=== PATIENT | male | born 1960 | race Caucasian/White ===

== ENCOUNTER 2020-11-16 18:21 | Inpatient (IN) | payer MEDICAID, OTHER ==
[~2020-11-16] VITALS: Ht 170.2 cm; Wt 136.1 kg
[2020-11-16] MEDS ORDERED: ASPIRIN 325MG TABLET PO ONE (22:00)
[2020-11-16] MEDS ORDERED: FUROSEMIDE 40MG/4ML VIAL IVP ONE (22:00)
[2020-11-16 23:00] LABS: BASOPHILS % 1.7 % (0.0-2.0); EOSINOPHILS % 1.2 % (0.0-5.0); HEMATOCRIT. 36.8 % (42.0-52.0); HEMOGLOBIN. 12.2 g/dL (14.0-18.0); LYMPHOCYTES % 49.2 % (20.0-50.0); MEAN CORPUSCULAR HEMOGLOBIN 28.2 pg (28.0-32.0); MEAN CORPUSCULAR VOLUME 85.1 fL (80.0-94.0); MEAN PLATELET VOLUME 7.5 fl (7.4-10.4); MONOCYTES % 7.3 % (2.0-8.0); NEUTROPHILS % 40.6 % (40.0-76.0); PLATELET 71 x1000/uL (130-400); RED BLOOD CELL COUNT 4.33 mill/uL (4.7-6.1); RED CELL DISTRIBUTION WIDTH 16.3 % (11.6-14.6)
[2020-11-16 23:07] LABS: CHLORIDE 108 mEq/L (98-107)
[2020-11-16 23:09] LABS: INR 1.1
[2020-11-17] MEDS ORDERED: ONDANSETRON HCL 4MG/2ML INJ IV PRN (08:15)
[2020-11-17] MEDS: FUROSEMIDE 40MG/4ML VIAL IVP SCH ×2 (09:10→17:27)
[2020-11-17 11:13] VITALS: BP 158/76
[2020-11-17 12:00] VITALS: BP 188/89
[2020-11-17] MEDS: ACETAMINOPHEN 325MG TABLET PO PRN ×2 (12:44→20:53)
[2020-11-17] MEDS: CLONIDINE 0.1MG TABLET PO PRN (14:36)
[2020-11-17 16:00] VITALS: BP 156/84
[2020-11-17] MEDS ORDERED: APIX2.5T PO (16:01)
[2020-11-17] MEDS ORDERED: AMIO100T4 MT (16:01)
[2020-11-17] MEDS ORDERED: ACET250T26 PO (16:01)
[2020-11-17] MEDS ORDERED: FURO80TA87 PO (16:01)
[2020-11-17] MEDS: POTASSIUM CHLORIDE 20MEQ TABLET SR PO SCH (17:28)
[2020-11-17 19:05] LABS: *COCAINE SCREEN URINE NEGATIVE (NEGATIVE); CANNABINOID URINE SCREEN PRESUMTIVE POSITIVE (NEGATIVE); METHADONE URINE SCREEN NEGATIVE (NEGATIVE); OPIATES URINE SCREEN NEGATIVE (NEGATIVE); PHENCYCLIDINE URINE SCREEN NEGATIVE (NEGATIVE)
[2020-11-17 19:06] LABS: *AMPHETAMINES SCREEN URINE NEGATIVE (NEGATIVE); *BARBITURATES SCREEN URINE NEGATIVE (NEGATIVE); *BENZODIAZEPINES SCREEN URINE NEGATIVE (NEGATIVE)
[2020-11-17 20:35] VITALS: BP 130/91
[2020-11-18] VITALS (7 sets, daily range): BP systolic 137–163; BP diastolic 65–86
[2020-11-18] MEDS: CLONIDINE 0.1MG TABLET PO PRN (00:35)
[2020-11-18] MEDS: HYDROCODONE/ACETAMINOPHEN 10/325MG TABLET PO PRN (02:47)
[2020-11-18] MEDS: FUROSEMIDE 40MG/4ML VIAL IVP SCH ×2 (06:15→17:54)
[2020-11-18] MEDS: ACETAMINOPHEN 325MG TABLET PO PRN (06:32)
[2020-11-18] MEDS: POTASSIUM CHLORIDE 20MEQ TABLET SR PO SCH (09:24)
[2020-11-18] MEDS ORDERED: REGADENOSON 0.4 MG/5 ML IV ONE (10:45)
[2020-11-18] MEDS: LOSARTAN POTASSIUM 25 MG TABLET PO SCH (11:04)
[2020-11-18 12:34] LABS: HEMATOCRIT. 38.1 % (42.0-52.0); HEMOGLOBIN. 12.5 g/dL (14.0-18.0); MEAN CORPUSCULAR HEMOGLOBIN 28.1 pg (28.0-32.0); MEAN CORPUSCULAR VOLUME 85.7 fL (80.0-94.0); MEAN PLATELET VOLUME 8.1 fl (7.4-10.4); PLATELET 61 x1000/uL (130-400); RED BLOOD CELL COUNT 4.45 mill/uL (4.7-6.1); RED CELL DISTRIBUTION WIDTH 16.7 % (11.6-14.6)
[2020-11-18 12:59] LABS: CHLORIDE 100 mEq/L (98-107)
[2020-11-18] MEDS: CARVEDILOL 3.125 MG TABLET PO SCH (21:31)
[2020-11-19 00:02] LABS: PLATELET ESTIMATE DECREASED
[2020-11-19 01:13] VITALS: BP 147/81
[2020-11-19 05:17] VITALS: BP 130/69
[2020-11-19 08:00] VITALS: BP 157/92
[2020-11-19 08:20] LABS: MEAN PLATELET VOLUME 8.2 fl (7.4-10.4); PLATELET 67 x1000/uL (130-400); RED BLOOD CELL COUNT 4.65 mill/uL (4.7-6.1); RED CELL DISTRIBUTION WIDTH 16.6 % (11.6-14.6)
[2020-11-19 08:36] LABS: CHLORIDE 101 mEq/L (98-107)
[2020-11-19] MEDS ORDERED: POTASSIUM CHLORIDE 20MEQ TABLET SR PO SCH (08:45)
[2020-11-19] MEDS: LOSARTAN POTASSIUM 25 MG TABLET PO SCH (09:15)
[2020-11-19] MEDS: CARVEDILOL 3.125 MG TABLET PO SCH ×2 (09:16→21:19)
[2020-11-19] MEDS: POTASSIUM CHLORIDE 20MEQ TABLET SR PO SCH (09:17)
[2020-11-19] MEDS: FUROSEMIDE 40MG/4ML VIAL IVP SCH ×2 (09:17→16:54)
[2020-11-19 12:00] VITALS: BP 138/74
[2020-11-19] MEDS ORDERED: REGADENOSON 0.4 MG/5 ML IV ONE (12:30)
[2020-11-19 13:30] LABS: PLATELET ESTIMATE DECREASED
[2020-11-19 16:00] VITALS: BP 148/78
[2020-11-19 20:00] VITALS: BP 192/76
[2020-11-20] VITALS: BP 117/63
[2020-11-20 04:00] VITALS: BP 131/77
[2020-11-20] MEDS: FUROSEMIDE 40MG/4ML VIAL IVP SCH ×2 (06:29→16:14)
[2020-11-20 06:41] LABS: CLARITY URINE CLEAR (CLEAR); COLOR URINE DARK YELLOW (YELLOW); KETONES URINE NEGATIVE (NEGATIVE); LEUKOCYTE ESTERASE URINE TRACE (NEGATIVE); NITRITE URINE NEGATIVE (NEGATIVE); OCCULT BLOOD URINE NEGATIVE (NEGATIVE); PROTEIN URINE NEGATIVE (NEGATIVE); SPECIFIC GRAVITY URINE 1.025 (1.005-1.030)
[2020-11-20 07:52] LABS: BASOPHILS % 1.8 % (0.0-2.0); EOSINOPHILS % 5.9 % (0.0-5.0); HEMATOCRIT. 42.3 % (42.0-52.0); HEMOGLOBIN. 13.8 g/dL (14.0-18.0); LYMPHOCYTES % 30.2 % (20.0-50.0); MEAN CORPUSCULAR HEMOGLOBIN 27.9 pg (28.0-32.0); MEAN CORPUSCULAR VOLUME 85.6 fL (80.0-94.0); MEAN PLATELET VOLUME 8.1 fl (7.4-10.4); MONOCYTES % 12.1 % (2.0-8.0); PLATELET 98 x1000/uL (130-400); RED BLOOD CELL COUNT 4.95 mill/uL (4.7-6.1); RED CELL DISTRIBUTION WIDTH 16.6 % (11.6-14.6)
[2020-11-20 08:00] VITALS: BP_SYST 139; BP_SYST 143; BP_SYST 151; BP_DIAS 80; BP_DIAS 83; BP_DIAS 86
[2020-11-20 08:03] LABS: CHLORIDE 99 mEq/L (98-107)
[2020-11-20] MEDS: POTASSIUM CHLORIDE 20MEQ TABLET SR PO SCH (08:27)
[2020-11-20] MEDS: CARVEDILOL 3.125 MG TABLET PO SCH (08:27)
[2020-11-20] MEDS: LOSARTAN POTASSIUM 25 MG TABLET PO SCH (08:28)
[2020-11-20] MEDS ORDERED: POTASSIUM CHLORIDE 20MEQ TABLET SR PO NR (09:30)
[2020-11-20 12:00] VITALS: BP 133/71
[2020-11-20] MEDS ORDERED: POTASSIUM CHLORIDE 20MEQ TABLET SR PO SCH (12:00)
[2020-11-20] MEDS: HYDROCODONE/ACETAMINOPHEN 10/325MG TABLET PO PRN (12:21)
[2020-11-20] MEDS ORDERED: PROP10TA10 MT (15:22)
[2020-11-20] MEDS ORDERED: SPIR100T5 MT (15:22)
[2020-11-20] MEDS ORDERED: FURO-151 MT (15:22)
[2020-11-20 17:26] VITALS: BP 133/78
== END 2020-11-20 20:00 | disposition home or self-care (01) | DRG 194 ==
LOC: ER 18:21 → 7WST 11-17 00:28 → ENRESERV 11-17 03:48 → 8WST 11-18 00:56
PROVIDERS: ADMIT Internal Medicine; ATTEND Internal Medicine
DX: I11.0 Hypertensive heart disease with heart failure (principal); I50.43 Acute on chronic combined systolic (congestive) and diastolic (congestive) heart failure; E87.6 Hypokalemia; K74.60 Unspecified cirrhosis of liver; E44.1 Mild protein-calorie malnutrition; D69.6 Thrombocytopenia, unspecified; E87.8 Other disorders of electrolyte and fluid balance, not elsewhere classified; D61.818 Other pancytopenia; E66.01 Morbid (severe) obesity due to excess calories; I48.91 Unspecified atrial fibrillation; Z20.822 Contact with and (suspected) exposure to COVID-19; Z91.14 Patient's other noncompliance with medication regimen; Z68.42 Body mass index [BMI] 45.0-49.9, adult; Z86.73 Personal history of transient ischemic attack (TIA), and cerebral infarction without residual deficits
CPT/HCPCS: 36415; 71045; 76700; 78452; 80048; 80053; 80061; 80305; 81003; 83735; 83880; 84443; 84484; 85025; 87426; 93005; 93017; 93306; 97162; 99285; A9500; J1940; J2405; J2785; U0003